=== PATIENT | male | born 1995 | race Caucasian/White ===

== ENCOUNTER 2016-07-30 00:41 | Emergency (ER) | payer OTHER ==
--- NOTE | 2016-07-30 01:05 | ERPHSYRPT ---
- History of Present Illness Time Seen by Provider: 07/30/16 00:57 Source: patient, police Exam Limitations: no limitations Physician History: Patient is a 21-year-old male brought in by police from home where his girlfriend called the police because he told her he was going to kill himself by getting hit by a train. He has been in a relationship with his girlfriend for 2 years. Today she told him that she had a crush on a girl. About 4 or 5 hours ago he was very upset was having difficulty communicating with her. This the police were on their way, he told her that he would give her until tomorrow to think about her decision. He now feels better. He states that he is "over it". He does not smoke or drink or do drugs. He says all he does is playing on his PlayStation. About 5 years ago he thought about killing himself when his mother told him to to get out of the house. He no longer lives with his mother. He was with his father and stepmother. He did talk with his father reba about the issue. He does not take any medicines. Timing/Duration: today, hour(s) (5) Severity of Symptoms-Max: severe Severity of Symptoms-Current: mild Context related to: other (breakup with girlfriend) Suicidal thoughts: specific plan Associated Symptoms: depressed Previous symptoms: same symptoms as today Allergies/Adverse Reactions: No Known Drug Allergies Allergy (Unverified 07/30/16 01:07) Home Medications: No Reportable Medications [No Reported Medications] 07/30/16 [History] - Review of Systems Constitutional: No Fever, No Chills Eyes: No Symptoms Ears, Nose, & Throat: No Symptoms Respiratory: No Cough, No Dyspnea Cardiac: No Chest Pain, No Edema, No Syncope Abdominal/Gastrointestinal: No Abdominal Pain, No Nausea, No Vomiting, No Diarrhea Genitourinary Symptoms: No Dysuria Musculoskeletal: No Back Pain, No Neck Pain Skin: No Rash Neurological: No Dizziness, No Focal Weakness, No Sensory Changes Psychological: Depression, Suicidal Ideations, No Alcohol Abuse, No Drug Abuse Endocrine: No Symptoms Hematologic/Lymphatic: No Symptoms Immunological/Allergic: No Symptoms All Other Systems: Reviewed and Negative - Nursing Vital Signs Nursing Vital Signs: Initial Vital Signs Temperature 97.5 F Temperature Source Oral Pulse Rate 90 Respiratory Rate 16 Blood Pressure [Right Arm] 129/75 - Physical Exam General Appearance: no apparent distress Eyes, Ears, Nose, Throat Exam: normal ENT inspection, moist mucous membranes Neck Exam: normal inspection, non-tender, supple Respiratory Exam: normal breath sounds, lungs clear, No respiratory distress Cardiovascular Exam: regular rate/rhythm, No edema Gastrointestinal/Abdominal Exam: soft, No tenderness, No distention Extremities Exam: normal inspection, normal range of motion, No evidence of injury, No edema Current Suicidality: has suicide plan Neurological Exam: alert, cardiovascular operating room nurse II-XII nml as tested, oriented x 3, depressed affect Appearance: appropriate appearance, appropriate insight Behavior/Eye Contact/Speech: alert & cooperative, cooperative, good eye contact Thoughts/Hallucinations: normal thought pattern Skin Exam: normal color, warm, dry, No rash SpO2 Interpretation: normal SpO2: 98 Oxygen Delivery: Room Air Ordered Tests: Active Orders 24 hr Category Date Time Status Clean Catch Urine Specimen STAT Care 07/30/16 01:44 Active Psychiatric Evaluation STAT Care 07/30/16 01:07 Active ACETAMINOPHEN Stat Lab 07/30/16 01:15 Completed CBC W DIFF Stat Lab 07/30/16 01:15 Completed CMP Stat Lab 07/30/16 01:15 Completed Ethyl Alcohol,Urine Stat Lab 07/30/16 01:41 Completed SALICYLATE Stat Lab 07/30/16 01:15 Completed TSH [TSH, 3RD Generation] Stat Lab 07/30/16 01:15 Completed UA Stat Lab 07/30/16 01:41 Completed Urine Triage Profile Stat Lab 07/30/16 01:41 Completed Lab/Rad Data: Laboratory Result Diagrams 07/30/16 01:15 07/30/16 01:15 Laboratory Results 07/30/16 07/30/16 07/30/16 Range/Units 01:41 01:41 01:41 WBC (4.0-10.5) K/mm3 RBC (4.1-5.6) M/mm3 Hgb (12.5-18.0) gm/dl Hct (42-50) % MCV (78-100) fl MCH (26-32) pg MCHC (32-36) g/dl RDW (11.5-14.0) % Plt Count (150-450) K/mm3 MPV (6-9.5) fl Gran % (36.0-66.0) % Lymphocytes % (24.0-44.0) % Monocytes % (0.0-12.0) % Eosinophils % (0.00-5.0) % Basophils % (0.0-0.4) % Basophils # (0-0.4) Sodium (136-145) mEq/L Potassium (3.5-5.1) mEq/L Chloride (98-107) mEq/L Carbon Dioxide (21-32) mEq/L Anion Gap (5-15) MEQ/L BUN (9-20) mg/dL Creatinine (0.55-1.30) mg/dl Estimated GFR ML/MIN Glucose (70-110) MG/DL Calcium (8.5-10.1) mg/dL Total Bilirubin (0.2-1.0) mg/dL AST (15-37) U/L ALT (12-78) U/L Alkaline Phosphatase (46-116) U/L Serum Total Protein (6.4-8.2) gm/dL Albumin (3.4-5.0) g/dL TSH 3rd Generation (0.358-3.740) mIU/L Ur Collection Type VOID Urine Color YELLOW (YELLOW) Urine Appearance CLEAR (CLEAR) Urine pH 6.0 6.0 (5-6) Ur Specific [place] 1.020 (1.005-1.025) Urine Protein NEGATIVE (Negative) Urine Glucose (UA) NEGATIVE (NEGATIVE) mg/dL Urine Ketones SMALL-15 (NEGATIVE) Urine Nitrite NEGATIVE (NEGATIVE) Urine Bilirubin NEGATIVE (NEGATIVE) Urine Urobilinogen 1 (0-1) mg/dL Urine WBC (Auto) NEGATIVE (NEGATIVE) Urine RBC (Auto) NEGATIVE (0-5) Andrew/ul Salicylates (2.8-20.0) mg/dl Urine Opiates Level NEG. (NEGATIVE) Ur Methadone NEG. (NEGATIVE) Acetaminophen (10-30) ug/ml Urine Barbiturates NEG. (NEGATIVE) Ur Phencyclidine (PCP) NEG. (NEGATIVE) Urine Amphetamine NEG. (NEGATIVE) U Benzodiazepine Level NEG. (NEGATIVE) Urine Cocaine NEG. (NEGATIVE) Urine Marijuana (THC) NEG. (NEGATIVE) Urine Ethyl Alcohol 3 (0.00-20) mg/dl Specimen Received 07/30/16 0145 07/30/16 07/30/16 07/30/16 Range/Units 01:15 01:15 01:15 WBC 8.9 (4.0-10.5) K/mm3 RBC 5.48 (4.1-5.6) M/mm3 Hgb 15.0 (12.5-18.0) gm/dl Hct 42.9 (42-50) % MCV 78.3 (78-100) fl MCH 27.4 (26-32) pg MCHC 35.0 (32-36) g/dl RDW 12.5 (11.5-14.0) % Plt Count 235 (150-450) K/mm3 MPV 10.1 H (6-9.5) fl Gran % 57.8 (36.0-66.0) % Lymphocytes % 30.9 (24.0-44.0) % Monocytes % 7.9 (0.0-12.0) % Eosinophils % 2.8 (0.00-5.0) % Basophils % 0.6 (0.0-0.4) % Basophils # 0.05 (0-0.4) Sodium 142 (136-145) mEq/L Potassium 3.5 (3.5-5.1) mEq/L Chloride 103 (98-107) mEq/L Carbon Dioxide 28.4 (21-32) mEq/L Anion Gap 13.8 (5-15) MEQ/L BUN 12 (9-20) mg/dL Creatinine 1.03 (0.55-1.30) mg/dl Estimated GFR > 60 ML/MIN Glucose 92 (70-110) MG/DL Calcium 9.3 (8.5-10.1) mg/dL Total Bilirubin 0.5 (0.2-1.0) mg/dL AST 16 (15-37) U/L ALT 16 (12-78) U/L Alkaline Phosphatase 78 (46-116) U/L Serum Total Protein 7.2 (6.4-8.2) gm/dL Albumin 4.1 (3.4-5.0) g/dL TSH 3rd Generation 1.824 (0.358-3.740) mIU/L Ur Collection Type Urine Color (YELLOW) Urine Appearance (CLEAR) Urine pH (5-6) Ur Specific [place] (1.005-1.025) Urine Protein (Negative) Urine Glucose (UA) (NEGATIVE) mg/dL Urine Ketones (NEGATIVE) Urine Nitrite (NEGATIVE) Urine Bilirubin (NEGATIVE) Urine Urobilinogen (0-1) mg/dL Urine WBC (Auto) (NEGATIVE) Urine RBC (Auto) (0-5) Andrew/ul Salicylates < 2.8 L (2.8-20.0) mg/dl Urine Opiates Level (NEGATIVE) Ur Methadone (NEGATIVE) Acetaminophen < 2.0 L (10-30) ug/ml Urine Barbiturates (NEGATIVE) Ur Phencyclidine (PCP) (NEGATIVE) Urine Amphetamine (NEGATIVE) U Benzodiazepine Level (NEGATIVE) Urine Cocaine (NEGATIVE) Urine Marijuana (THC) (NEGATIVE) Urine Ethyl Alcohol (0.00-20) mg/dl Specimen Received - Progress Progress: improved Counseled pt/family regarding: lab results, diagnosis - Departure Time of Disposition: 06:04 Departure Disposition: Transfer (Transfer to [facility] per DR Eldon Aguiar) Clinical Impression: Depression, Suicidal ideation Condition: Stable Critical Care Time: No Additional Instructions: You have depression and suicidal ideation. You're being transferred to [facility] for further evaluation and care.
[2016-07-30 01:19] LABS: BASOPHIL % 0.6 % (0.0-0.4); Eosinophil % 2.8 % (0.00-5.0); Granulocytes % 57.8 % (36.0-66.0); Lymphocytes % 30.9 % (24.0-44.0); Mean Cell Volume 78.3 fl (78-100); Mean Corpuscular Hemoglobin 27.4 pg (26-32); Mean Platelet Volume 10.1 fl (6-9.5); Monocytes % 7.9 % (0.0-12.0); Platelet Count 235 K/mm3 (150-450); Red Blood Count 5.48 M/mm3 (4.1-5.6); Red Cell Distribution Width 12.5 % (11.5-14.0); White Blood Count 8.9 K/mm3 (4.0-10.5)
[2016-07-30 01:47] LABS: COMPLETE URINE MICROSCOPIC? NO; Collection Type VOID
[2016-07-30 01:53] LABS: ALBUMIN 4.1 g/dL (3.4-5.0); ALKALINE PHOSPHATASE 78 U/L (46-116); ANION GAP 13.8 MEQ/L (5-15); BILIRUBIN,TOTAL 0.5 mg/dL (0.2-1.0); BLOOD UREA NITROGEN 12 mg/dL (9-20); CHLORIDE 103 mEq/L (98-107); Carbon Dioxide 28.4 mEq/L (21-32); Glucose 92 MG/DL (70-110); Potassium 3.5 mEq/L (3.5-5.1); SGOT/AST 16 U/L (15-37); SGPT/ALT 16 U/L (12-78); SODIUM 142 mEq/L (136-145); Total Protein 7.2 gm/dL (6.4-8.2)
[2016-07-30 01:59] LABS: ACETAMINOPHEN < 2.0 ug/ml (10-30)
[2016-07-30 06:09] VITALS: O2SAT 98
[2016-07-30 06:26] VITALS: BP 111/70; PULSE 98
== END 2016-07-30 06:20 ==
LOC: ED 00:41
DX: F32.9 Major depressive disorder, single episode, unspecified (principal); R45.851 Suicidal ideations
CPT/HCPCS: 36415; 80053; 80307; 80320; 81002; 83986; 84443; 85025; 99285; G0481